=== PATIENT | male | born 1970 | race Caucasian/White ===

== ENCOUNTER → 2024-08-05 | Outpatient (CLI) | payer BC ==
[~2024-08-05] MED LIST: DAPT500V18 IV; FOLI1TAB11 PO; HEPA100PFS INJ; HEPA100PFS IV; IBUP200C25 PO; ISOVUE-300 61% 100ML VIAL As Ordered ONE; LIDOCAINE 1% MDV 20ML VIAL As Ordered ONE; RIFA30CA PO; SALI0.9I2 IV; THERTAB30 PO; TYLE325T5 PO; VANC10005 IV; VITA100T8 PO; methylPREDNISolone SUSP 40MG/ML 1ML VIAL (DEPO MEDROL) As Ordered ONE
== END ==
LOC: M RAD 14:51
PROVIDERS: ATTEND Physician Assistant Surgical
DX: M16.12 Unilateral primary osteoarthritis, left hip (principal)
CPT/HCPCS: 20610; 77002; J1010; Q9967